=== PATIENT | female | born 1960 | race Hispanic/Latino ===

== ENCOUNTER 2023-04-13 14:46 | Emergency (ER) | payer MEDICARE ==
[~2023-04-13] VITALS: Ht 144.8 cm; Wt 72.7 kg
[2023-04-13] MEDS ORDERED: SITA50TAB PO (14:58)
[2023-04-13] MEDS ORDERED: GLIM2TAB4 PO (14:58)
[2023-04-13] MEDS ORDERED: METF-818 PO (14:58)
[2023-04-13] MEDS ORDERED: ACETAMINOPHEN 325 MG TAB PO ONE (18:15)
[2023-04-13] MEDS ORDERED: IBUPROFEN 400MG TAB PO ONE (18:15)
[2023-04-13 18:19] VITALS: BP 143/73; TEMP 96.5; O2SAT 100
== END 2023-04-13 18:24 | disposition home or self-care (01) ==
LOC: M ED 14:46
DX: M54.50 Low back pain, unspecified (principal); M25.512 Pain in left shoulder; M25.561 Pain in right knee; M25.562 Pain in left knee; E11.9 Type 2 diabetes mellitus without complications; W01.0XXA Fall on same level from slipping, tripping and stumbling without subsequent striking against object, initial encounter; Y92.512 Supermarket, store or market as the place of occurrence of the external cause; Y93.89 Activity, other specified; Y99.9 Unspecified external cause status; Z86.73 Personal history of transient ischemic attack (TIA), and cerebral infarction without residual deficits; Z79.4 Long term (current) use of insulin; Z79.899 Other long term (current) drug therapy

== ENCOUNTER 2023-11-02 16:20 | Emergency (ER) | payer MEDICARE ==
[~2023-11-02] VITALS: Ht 144.8 cm; Wt 72.4 kg
[~2023-11-02 16:20] MED LIST: GLIM2TAB4 PO; METF-818 PO; SITA50TAB PO
[2023-11-02 18:52] VITALS: BP 138/76; TEMP 97.1; O2SAT 97
[2023-11-02 18:59] LABS: BASO % 0.5 % (0.0-1.0); EOS # 0.1 10^3/uL (0.0-0.5); EOS % 1.6 % (0.0-3.0); HEMATOCRIT 40.5 % (36.0-47.0); LYMPH % 23.1 % (24.0-44.0); MEAN CORPUSCULAR HEMOGLOBIN 30.5 pg (27.0-33.0); MEAN CORPUSCULAR HGB CONC 34.6 g/dl (32.0-36.5); MEAN CORPUSCULAR VOLUME 88.2 fl (80.0-96.0); MONO # 0.6 10^3/uL (0.0-0.8); MONO % 6.4 % (2.0-8.0); NEUTROPHILS # 5.9 10^3/uL (1.5-8.5); NEUTROPHILS % 67.7 % (36.0-66.0); PLATELET COUNT, AUTOMATED 209 10^3/uL (150-450); RED BLOOD COUNT 4.59 10^6/uL (4.00-5.40); WHITE BLOOD COUNT 8.7 10^3/uL (4.0-10.0)
[2023-11-02 19:22] LABS: LIPASE 22 U/L (12-53)
[2023-11-02 19:25] LABS: ALBUMIN 3.6 G/DL (3.2-5.2); ALKALINE PHOSPHATASE 94 U/L (46-116); ALT/SGPT 47 U/L (7.0-40); AST/SGOT 11 U/L (<34); BILIRUBIN,DIRECT 0.4 MG/DL (<0.4); BILIRUBIN,TOTAL 1.2 MG/DL (0.3-1.2); BLOOD UREA NITROGEN 9 MG/DL (9-23); CALCIUM LEVEL 9.9 MG/DL (8.3-10.6); CARBON DIOXIDE LEVEL 24 MMOL/L (20-31); CHLORIDE LEVEL 110 MMOL/L (98-107); GLOMERULAR FILTRATION RATE > 60.0 (>45); GLUCOSE, FASTING 226 MG/DL (74-106); POTASSIUM SERUM 4.3 MMOL/L (3.5-5.1); SODIUM LEVEL 140 MMOL/L (136-145); TOTAL PROTEIN 6.5 G/DL (5.7-8.2)
== END 2023-11-02 22:29 | disposition left against medical advice (07) ==
LOC: M ED 16:20
DX: Z53.21 Procedure and treatment not carried out due to patient leaving prior to being seen by health care provider (principal)

== ENCOUNTER → 2023-11-07 | Outpatient (REF) | payer MEDICARE, MEDICAID ==
[2023-11-07 13:54] LABS: CREATININE, URINE 152.9 MG/DL; MAU/CREAT RATIO 4.5 MCG/MG (0.0-30.0)
[2023-11-07 19:21] LABS: ALBUMIN 3.6 G/DL (3.2-5.2); ALKALINE PHOSPHATASE 84 U/L (46-116); ALT/SGPT 35 U/L (7.0-40); AST/SGOT 15 U/L (<34); BILIRUBIN,TOTAL 1.4 MG/DL (0.3-1.2); BLOOD UREA NITROGEN 7 MG/DL (9-23); CALCIUM LEVEL 9.3 MG/DL (8.3-10.6); CARBON DIOXIDE LEVEL 25 MMOL/L (20-31); CHLORIDE LEVEL 108 MMOL/L (98-107); CHOLESTEROL LEVEL 142 MG/DL (<200); CREATININE FOR GFR 0.56 MG/DL (0.55-1.30); GLOMERULAR FILTRATION RATE > 60.0 (>45); GLUCOSE, FASTING 141 MG/DL (74-106); HDL CHOLESTEROL 47.2 MG/DL (>40); NON-HDL-C 94.8 MG/DL; POTASSIUM SERUM 4.3 MMOL/L (3.5-5.1); SODIUM LEVEL 143 MMOL/L (136-145); TOTAL PROTEIN 6.6 G/DL (5.7-8.2); TRIGLYCERIDES LEVEL 134 MG/DL (<150)
[2023-11-07 19:22] LABS: THYROID STIMULATING HORMONE 1.989 uIU/ML (0.55-4.78); TOTAL 25(OH) VITAMIN D 29.4 NG/ML (20.0-100.0)
[2023-11-07 20:21] LABS: HEMOGLOBIN A1c 12.4 % (4.0-6.0)
== END ==
LOC: M LAB REF 12:38
PROVIDERS: ATTEND Physician Assistant
DX: E11.9 Type 2 diabetes mellitus without complications (principal); E55.9 Vitamin D deficiency, unspecified; E66.9 Obesity, unspecified; Z11.3 Encounter for screening for infections with a predominantly sexual mode of transmission; Z72.89 Other problems related to lifestyle

== ENCOUNTER → 2024-01-05 | Outpatient (CLI) | payer MEDICARE, MEDICAID ==
[2024-01-05 16:18] LABS: BASO % 0.4 % (0.0-1.0); EOS # 0.1 10^3/uL (0.0-0.5); EOS % 1.4 % (0.0-3.0); HEMATOCRIT 40.3 % (36.0-47.0); HEMOGLOBIN 13.7 g/dl (12.0-15.5); LYMPH # 1.9 10^3/uL (1.5-5.0); MEAN CORPUSCULAR HEMOGLOBIN 30.4 pg (27.0-33.0); MEAN CORPUSCULAR VOLUME 89.6 fl (80.0-96.0); MONO # 0.5 10^3/uL (0.0-0.8); MONO % 6.1 % (2.0-8.0); NEUTROPHILS # 5.9 10^3/uL (1.5-8.5); NEUTROPHILS % 69.9 % (36.0-66.0); PLATELET COUNT, AUTOMATED 207 10^3/uL (150-450); WHITE BLOOD COUNT 8.4 10^3/uL (4.0-10.0)
[2024-01-05 16:40] LABS: LIPASE 26 U/L (12-53)
[2024-01-05 16:42] LABS: ALBUMIN 3.5 G/DL (3.2-5.2); ALKALINE PHOSPHATASE 78 U/L (46-116); ALT/SGPT 14 U/L (7.0-40); AST/SGOT 8 U/L (<34); BILIRUBIN,TOTAL 0.7 MG/DL (0.3-1.2); BLOOD UREA NITROGEN 7 MG/DL (9-23); CALCIUM LEVEL 9.5 MG/DL (8.3-10.6); CARBON DIOXIDE LEVEL 24 MMOL/L (20-31); CHLORIDE LEVEL 109 MMOL/L (98-107); CREATININE FOR GFR 0.62 MG/DL (0.55-1.30); GLOMERULAR FILTRATION RATE > 60.0 (>45); GLUCOSE, FASTING 183 MG/DL (74-106); POTASSIUM SERUM 3.9 MMOL/L (3.5-5.1); SODIUM LEVEL 138 MMOL/L (136-145); TOTAL PROTEIN 6.8 G/DL (5.7-8.2)
== END ==
LOC: M LAB 15:46
PROVIDERS: ATTEND Physician Assistant
DX: R10.11 Right upper quadrant pain (principal)

== ENCOUNTER → 2024-01-10 | Outpatient (CLI) | payer MEDICARE, MEDICAID | LOC: M WHC 08:50 | PROVIDERS: ATTEND Physician Assistant | DX: N63.10 Unspecified lump in the right breast, unspecified quadrant (principal); Z85.3 Personal history of malignant neoplasm of breast | CPT/HCPCS: 77066; G0279 ==

== ENCOUNTER 2024-03-06 19:28 | Emergency (ER) | payer MEDICAID, MEDICARE, OTHER ==
[~2024-03-06] VITALS: Ht 144.8 cm; Wt 72.6 kg
[~2024-03-06 19:28] MED LIST changes: +METF-1157 PO; -METF-818 PO
[2024-03-06 20:49] LABS: BASO % 0.2 % (0.0-1.0); EOS # 0.2 10^3/uL (0.0-0.5); EOS % 2.5 % (0.0-3.0); HEMATOCRIT 42.8 % (36.0-47.0); HEMOGLOBIN 14.4 g/dl (12.0-15.5); LYMPH # 2.2 10^3/uL (1.5-5.0); LYMPH % 26.9 % (24.0-44.0); MEAN CORPUSCULAR HEMOGLOBIN 29.8 pg (27.0-33.0); MEAN CORPUSCULAR HGB CONC 33.6 g/dl (32.0-36.5); MEAN CORPUSCULAR VOLUME 88.6 fl (80.0-96.0); MONO # 0.6 10^3/uL (0.0-0.8); MONO % 7.8 % (2.0-8.0); NEUTROPHILS % 62.1 % (36.0-66.0); PLATELET COUNT, AUTOMATED 209 10^3/uL (150-450); RED BLOOD COUNT 4.83 10^6/uL (4.00-5.40); WHITE BLOOD COUNT 8.1 10^3/uL (4.0-10.0)
[2024-03-06 21:09] LABS: ALBUMIN 3.7 G/DL (3.2-5.2); BILIRUBIN,DIRECT 0.2 MG/DL (<0.4); BILIRUBIN,TOTAL 0.6 MG/DL (0.3-1.2); TOTAL PROTEIN 7.2 G/DL (5.7-8.2)
[2024-03-06] MEDS ORDERED: ISOVUE-370 76% 100ML VIAL As Ordered ONE (22:08)
[2024-03-06] MEDS: ONDANSETRON 4MG 2ML VIAL IV ONE (22:09)
[2024-03-06] MEDS: KETOROLAC 30 MG/ML 1ML VIAL IV ONE (22:09)
[2024-03-06] MEDS: MORPHINE 4 MG/ML 1ML VIAL IV ONE (23:19)
[2024-03-06] MEDS: METOCLOPRAMIDE INJ 10MG/2ML VIAL IV ONE (23:30)
[2024-03-07 00:47] VITALS: BP 122/72; TEMP 97.2; O2SAT 97
== END 2024-03-07 01:40 | disposition home or self-care (01) ==
LOC: M ED 19:28
DX: R91.1 Solitary pulmonary nodule (principal); R10.31 Right lower quadrant pain; I88.0 Nonspecific mesenteric lymphadenitis; E11.9 Type 2 diabetes mellitus without complications; Z79.4 Long term (current) use of insulin; Z79.899 Other long term (current) drug therapy
CPT/HCPCS: 74177; 80047; 80076; 81001; 83690; 85025; 96374; 96375; 99284; J1885; J2405; J2765; Q9967

== ENCOUNTER → 2024-03-12 | Outpatient (CLI) | payer MEDICARE, MEDICAID | LOC: M RAD 08:29 | PROVIDERS: ATTEND Physician Assistant | DX: R10.11 Right upper quadrant pain (principal) ==

== ENCOUNTER → 2024-06-13 | Outpatient (CLI) | payer MEDICARE, MEDICAID | LOC: M PLAIMG 14:40 | PROVIDERS: ATTEND Physician Assistant | DX: R91.8 Other nonspecific abnormal finding of lung field (principal) ==

== ENCOUNTER → 2024-12-02 | Outpatient (REF) | payer MEDICARE, MEDICAID ==
[2024-12-02 13:11] LABS: ESTIMATED AVERAGE GLUCOSE 154.0 MG/DL (60-110)
[2024-12-02 13:19] LABS: CREATININE, URINE 87.0 MG/DL; MALB URINE SIEMENS 5.0 MG/L; MAU/CREAT RATIO 5.7 MCG/MG (0.0-30.0)
[2024-12-02 13:21] LABS: ALT/SGPT 21 U/L (7.0-40); AST/SGOT 18 U/L (<34); CALCIUM LEVEL 9.5 MG/DL (8.3-10.6); CARBON DIOXIDE LEVEL 23 MMOL/L (20-31); CHLORIDE LEVEL 111 MMOL/L (98-107); CHOLESTEROL LEVEL 177 MG/DL (<200); CHOLESTEROL RISK RATIO 4.06 (<5); CREATININE FOR GFR 0.73 MG/DL (0.55-1.30); GLOMERULAR FILTRATION RATE > 90.0 (>45); LDL CHOLESTEROL 114.1 MG/DL (<100); NON-HDL-C 133.5 MG/DL; POTASSIUM SERUM 4.5 MMOL/L (3.5-5.1); SODIUM LEVEL 145 MMOL/L (136-145); TRIGLYCERIDES LEVEL 97 MG/DL (<150)
== END ==
LOC: M LAB REF 11:46
PROVIDERS: ATTEND Student in an Organized Health Care Education/Training Program
DX: E11.9 Type 2 diabetes mellitus without complications (principal); Z68.37 Body mass index [BMI] 37.0-37.9, adult

== ENCOUNTER → 2024-12-11 | Outpatient (REF) | payer MEDICARE, MEDICAID | LOC: M LAB REF 16:17 | PROVIDERS: ATTEND Physician Assistant | DX: J02.9 Acute pharyngitis, unspecified (principal) ==

== ENCOUNTER → 2025-03-21 | Outpatient (REF) | payer MEDICARE, MEDICAID ==
[2025-03-21 16:52] LABS: APPEARANCE, URINE CLEAR (CLEAR); BACTERIA, URINE AUTO NEGATIVE (NEGATIVE); BILIRUBIN, URINE AUTO NEGATIVE (NEGATIVE); BLOOD, URINE BLOOD NEGATIVE (NEGATIVE); GLUCOSE, URINE (UA) AUTO 3+ mg/dL (NEGATIVE); KETONE, URINE AUTO NEGATIVE (NEGATIVE); LEUKOCYTE ESTERASE, URINE AUTO NEGATIVE (NEGATIVE); MUCUS, URINE SMALL (NEGATIVE); NITRITE, URINE AUTO NEGATIVE (NEGATIVE); PROTEIN, URINE AUTO NEGATIVE (NEGATIVE); RBC, URINE AUTO 0 /HPF (0-3); SPECIFIC GRAVITY URINE AUTO 1.024 (1.002-1.035); SQUAMOUS EPITHELIAL CELL UR AU 1 /HPF (0-6); UROBILINOGEN, URINE AUTO 0.2 mg/dL (0.0-2.0); WBC, URINE AUTO 1 /HPF (0-3)
[2025-03-21 17:15] LABS: CREATININE, URINE 92.6 MG/DL
[2025-03-21 17:16] LABS: ALT/SGPT 27.0 U/L (7.0-40); AST/SGOT 19.0 U/L (<34); CALCIUM LEVEL 9.3 MG/DL (8.3-10.6); CARBON DIOXIDE LEVEL 24.0 MMOL/L (20-31); CHLORIDE LEVEL 105.0 MMOL/L (98-107); CHOLESTEROL LEVEL 188.0 MG/DL (<200); CHOLESTEROL RISK RATIO 3.85 (<5); CREATININE FOR GFR 0.75 MG/DL (0.55-1.30); GLOMERULAR FILTRATION RATE 89.4 (>45); LDL CHOLESTEROL 118.8 MG/DL (<100); MALB URINE SIEMENS < 3.0 MG/L; NON-HDL-C 139.2 MG/DL; POTASSIUM SERUM 4.2 MMOL/L (3.5-5.1); SODIUM LEVEL 137.0 MMOL/L (136-145); TRIGLYCERIDES LEVEL 102.0 MG/DL (<150)
[2025-03-21 17:19] LABS: TOTAL 25(OH) VITAMIN D 32.6 NG/ML (20.0-100.0)
== END ==
LOC: M LAB REF 16:22
PROVIDERS: ATTEND Physician Assistant
DX: E11.9 Type 2 diabetes mellitus without complications (principal); E55.9 Vitamin D deficiency, unspecified